=== PATIENT | female | born 1945 | race Caucasian/White ===

== ENCOUNTER 2018-09-20 10:28 | Outpatient (CLI) | payer MEDICARE, OTHER | END 2018-09-20 10:29 | disposition home or self-care (01) | LOC: C.DEXAIC 10:28 | DX: M85.88 Other specified disorders of bone density and structure, other site (principal); E11.9 Type 2 diabetes mellitus without complications; M54.16 Radiculopathy, lumbar region; D51.9 Vitamin B12 deficiency anemia, unspecified; I10 Essential (primary) hypertension; E55.9 Vitamin D deficiency, unspecified; E78.49 Other hyperlipidemia ==